=== PATIENT | male | born 1950 | race Caucasian/White ===

== ENCOUNTER → 2020-11-21 | Outpatient (CLI) | payer MEDICARE | LOC: HEART 5 10-22 08:00 | DX: R06.02 Shortness of breath (principal); I08.3 Combined rheumatic disorders of mitral, aortic and tricuspid valves | CPT/HCPCS: 93306 ==

== ENCOUNTER 2021-03-05 09:47 | Emergency (ER) | payer MEDICARE | END 2021-03-05 12:19 | disposition home or self-care (01) | LOC: ER1 09:47 | DX: S90.01XA Contusion of right ankle, initial encounter (principal); S90.31XA Contusion of right foot, initial encounter; S80.11XA Contusion of right lower leg, initial encounter; J44.9 Chronic obstructive pulmonary disease, unspecified; I25.2 Old myocardial infarction; E11.9 Type 2 diabetes mellitus without complications; I11.9 Hypertensive heart disease without heart failure; W19.XXXA Unspecified fall, initial encounter; Y92.009 Unspecified place in unspecified non-institutional (private) residence as the place of occurrence of the external cause | CPT/HCPCS: 73590; 73610; 73630; 99283 ==

== ENCOUNTER → 2021-04-05 | Outpatient (CLI) | payer MEDICARE ==
[~2021-04-05] MED LIST: ZOFRAN4 MG PO
== END ==
LOC: KOH-I 10:56
DX: M54.5 Low back pain (principal); E11.40 Type 2 diabetes mellitus with diabetic neuropathy, unspecified; I10 Essential (primary) hypertension; J44.9 Chronic obstructive pulmonary disease, unspecified; I25.83 Coronary atherosclerosis due to lipid rich plaque; E78.5 Hyperlipidemia, unspecified; G47.33 Obstructive sleep apnea (adult) (pediatric); F43.10 Post-traumatic stress disorder, unspecified; I25.2 Old myocardial infarction; M25.78 Osteophyte, vertebrae; M41.9 Scoliosis, unspecified; M48.061 Spinal stenosis, lumbar region without neurogenic claudication; M48.07 Spinal stenosis, lumbosacral region
CPT/HCPCS: 72110

== ENCOUNTER → 2021-05-03 | Outpatient (CLI) | payer OTHER, MEDICARE | LOC: HEART 5 08:43 | DX: R06.02 Shortness of breath (principal); J98.4 Other disorders of lung; Z87.891 Personal history of nicotine dependence | CPT/HCPCS: 94060; 94729 ==

== ENCOUNTER 2021-05-22 15:30 | Emergency (ER) | payer OTHER, MEDICARE ==
[2021-05-22 17:46] LABS: HEMOGLOBIN 15.3 gm/dl (14.0-17.5); RED BLOOD COUNT 4.68 M/UL (4.20-5.50); WHITE BLOOD COUNT 11.3 K/UL (4.5-11.0)
[2021-05-22] MEDS ORDERED: ZOFRAN4 MG PO (21:15)
== END 2021-05-22 21:22 | disposition home or self-care (01) ==
LOC: ER1 15:30
PROVIDERS: Physician Assistant
DX: S39.011A Strain of muscle, fascia and tendon of abdomen, initial encounter (principal); E86.0 Dehydration; I25.10 Atherosclerotic heart disease of native coronary artery without angina pectoris; I10 Essential (primary) hypertension; E11.9 Type 2 diabetes mellitus without complications; X58.XXXA Exposure to other specified factors, initial encounter
CPT/HCPCS: 80053; 81001; 85025; 99284; Q9967

== ENCOUNTER 2021-08-28 12:38 | Inpatient (IN) | payer MEDICARE ==
[~2021-08-28] VITALS: Ht 172.7 cm; Wt 103.9 kg
[2021-08-28 13:59] LABS: HEMOGLOBIN 14.4 gm/dl (14.0-17.5); RED BLOOD COUNT 4.51 M/UL (4.20-5.50); WHITE BLOOD COUNT 9.2 K/UL (4.5-11.0)
[2021-08-28 14:32] LABS: BUN/CREATININE RATIO 11 (0-10)
[2021-08-28] MEDS ORDERED: PROZAC20 MG PO (18:15)
[2021-08-28] MEDS ORDERED: ASPIRIN EC81 MG PO (18:15)
[2021-08-28] MEDS ORDERED: CARVEDILOL25 MG PO (18:15)
[2021-08-28] MEDS ORDERED: FLOMAX 0.4 MG0.4 MG PO (18:16)
[2021-08-28] MEDS ORDERED: LISINOPRIL40 MG PO (18:17)
[2021-08-28] MEDS ORDERED: ELIQUIS 5 MG TAB5 MG PO (18:17)
[2021-08-28] MEDS ORDERED: ATORVASTATIN CA40 MG PO (18:17)
[2021-08-28] MEDS ORDERED: METFORMIN HCL1000 MG PO (18:18)
[2021-08-28] MEDS ORDERED: LANTUS SOL100 UNIT/1 INJ (18:18)
[2021-08-28] MEDS ORDERED: APRISO0.375 GM PO (18:18)
[2021-08-28] MEDS ORDERED: VITAMIN D325 MCG PO (18:19)
[2021-08-29 04:13] LABS: HEMOGLOBIN 13.4 gm/dl (14.0-17.5); RED BLOOD COUNT 4.22 M/UL (4.20-5.50); WHITE BLOOD COUNT 8.5 K/UL (4.5-11.0)
[2021-08-29 04:34] LABS: BUN/CREATININE RATIO 13 (0-10)
--- NOTE | 2021-08-29 14:44 | NUR ---
PROVIDER MADE AWARE THAT PATIENT WAS READY TO BE D/C PER CARDIOLOGY AND PULMONOLOGY.
[2021-08-30 06:54] LABS: WHITE BLOOD COUNT 9.4 K/UL (4.5-11.0)
[2021-08-30 06:56] LABS: HEMOGLOBIN 15.5 gm/dl (14.0-17.5); RED BLOOD COUNT 5.08 M/UL (4.20-5.50)
--- NOTE | 2021-08-30 12:35 | NUR ---
PER STEPHANIE RN PT 95% ON 2 L NC, O2 SAT 85% ON ROOM AIR RESTING, 80% O2 SAT AFTER WALKING 10 FEET OVER 1-2 MINUTES.
[2021-08-30] MEDS ORDERED: BUDESONIDE0.5 MG/2 M NEB (16:57)
[2021-08-30] MEDS ORDERED: IPRAT-ALBUT 0.5-3 ML NEB (16:57)
[2021-08-30] MEDS ORDERED: PROTONIX 40 MG40 M1 PO (16:57)
[2021-08-30] MEDS ORDERED: HYDROCHLOROTHIA25 MG PO (17:02)
== END 2021-08-30 19:43 | disposition home or self-care (01) | DRG 189 ==
LOC: ER1 12:38 → MED SURG 4 17:54 → CDU 17:54 → MED SURG 4 08-29 06:04
PROVIDERS: Physician Assistant Medical; ADMIT Internal Medicine
PROC: B24BZZZ Ultrasonography of Heart with Aorta (ICD-10-PCS; principal; 2021-08-29)
DX: J96.01 Acute respiratory failure with hypoxia (principal); Z20.822 Contact with and (suspected) exposure to COVID-19; E66.2 Morbid (severe) obesity with alveolar hypoventilation; K51.90 Ulcerative colitis, unspecified, without complications; I48.20 Chronic atrial fibrillation, unspecified; J44.9 Chronic obstructive pulmonary disease, unspecified; I10 Essential (primary) hypertension; E78.5 Hyperlipidemia, unspecified; E11.9 Type 2 diabetes mellitus without complications; N40.0 Benign prostatic hyperplasia without lower urinary tract symptoms; C44.80 Unspecified malignant neoplasm of overlapping sites of skin; I25.10 Atherosclerotic heart disease of native coronary artery without angina pectoris; F43.10 Post-traumatic stress disorder, unspecified; M15.9 Polyosteoarthritis, unspecified; E11.40 Type 2 diabetes mellitus with diabetic neuropathy, unspecified; F32.A Depression, unspecified; K21.9 Gastro-esophageal reflux disease without esophagitis; I08.1 Rheumatic disorders of both mitral and tricuspid valves; F17.210 Nicotine dependence, cigarettes, uncomplicated; G89.29 Other chronic pain; I25.2 Old myocardial infarction; Z79.4 Long term (current) use of insulin; Z95.5 Presence of coronary angioplasty implant and graft; Z79.01 Long term (current) use of anticoagulants; Z79.82 Long term (current) use of aspirin; Z88.8 Allergy status to other drugs, medicaments and biological substances; Z88.6 Allergy status to analgesic agent; Z80.3 Family history of malignant neoplasm of breast; Z82.49 Family history of ischemic heart disease and other diseases of the circulatory system; Z91.14 Patient's other noncompliance with medication regimen; Z68.35 Body mass index [BMI] 35.0-35.9, adult
CPT/HCPCS: ECHO; 36415; 36600; 71045; 80053; 82550; 82553; 82803; 82962; 83036; 83735; 83874; 83880; 84100; 84484; 85025; 85379; 93005; 93306; 94640; 94664; 94760; 99285; G0378; J0360; U0002